=== PATIENT | male | born 1945 ===

== ENCOUNTER 2018-06-20 14:19 | Inpatient (IN) ==
[2018-06-20] MEDS ORDERED: NS 1,000 ML IV PRN ×2 (14:25→17:33)
--- NOTE | 2018-06-20 14:49 | Diag Imaging Result Doc PS360 ---
EXAM: CT HEAD W/O CONTRAST HISTORY: STROKE SX TECHNIQUE: CT head without contrast COMPARISON: None. FINDINGS: No parenchymal hemorrhage. No epidural or subdural hematoma. No subarachnoid hemorrhage. There are prominent chronic microvascular ischemic changes. No mass identified on this noncontrasted exam. Mild ventricular prominence. Mucosal thickening in the left sphenoid sinus. IMPRESSION: 1.No hemorrhage 2.Prominent chronic microvascular ischemic changes This exam was performed using automated exposure control, adjustment of mA or kV according to patient size, and/or use of iterative reconstruction technique. Electronically signed by Anupam Martínez 06/20/2018 2:47 PM
--- NOTE | 2018-06-20 15:07 | Diag Imaging Result Doc PS360 ---
EXAM: CHEST-PORTABLE HISTORY: stroke like symptoms TECHNIQUE: Portable chest single view COMPARISON: None. FINDINGS: The lungs are well expanded. The heart is not enlarged. No consolidation. Mild central vascular distention. There calcified right paratracheal lymph nodes. No effusion identified. There is a thoracic aortic graft. IMPRESSION: Mild central vascular prominence. Electronically signed by Anupam Martínez 06/20/2018 3:05 PM
[2018-06-20 15:20] LABS: BASO# 0.02 X1000 (0.0-0.2); BASO% 0.4 % (0.0-0.8); EOS# 0.05 X1000 (0.0-0.7); HEMATOCRIT 44.6 % (42.0-52.0); HEMOGLOBIN 14.8 g/dL (14.0-18.0); LYMPH# 1.59 X1000 (1.2-3.4); LYMPH% 32.6 % (20.5-51.1); MCH 28.2 PG (27-31); MCHC 33.2 g/dL (33-37); MONO# 0.62 X1000 (0.11-0.59); MONO% 12.7 % (1.7-9.3); MPV 10.9 FL (7.4-10.4); NEUT# 2.59 X1000 (1.4-6.5); NEUT% 53.3 % (42.2-75.2); PLT 135 X1000 (130-400); RBC 5.25 XMIL (4.7-6.1); RDW 13.4 % (11.5-14.5); WBC 4.87 X1000 (4.8-10.8)
[2018-06-20 15:37] LABS: INR 1.03; PROTIME 14.3 Seconds (11.0-16.0)
[2018-06-20 15:38] LABS: PTT 27.6 Seconds (22.3-41.8)
[2018-06-20 15:58] LABS: AGAP 11; ALB/GLOB RATIO 1.3; ALKALINE PHOSPHATASE 62 U/L (32-122); BUN 10 mg/dL (8-22); CHLORIDE 104 mmol/L (98-107); COSMO 281; GLUCOSE 106 mg/dL (70-104); GOT 13 U/L (10-34); GPT 8 U/L (10-44); POTASSIUM 4.1 mmol/L (3.5-5.1); SODIUM 141 mmol/L (136-145); TCO2 26 mmol/L (25-35); TOTAL BILIRUBIN 0.52 mg/dL (0.20-1.00); TOTAL PROTEIN 7.2 g/dL (6.3-8.3)
[2018-06-20 18:07] LABS: FREE T4 1.27 ng/dL (0.93-1.70); TSH 1.58 uIUmL (0.27-4.20)
--- NOTE | 2018-06-20 18:11 | PROVIDER DOCUMENTATION ---
This chart was entered by Karla Dykes Scribe, acting as scribe for Abdulaziz Purcell MD. HPI-Neurological Disorder - General Stated Complaint: STROKE LIKE Time Seen by Provider: 06/20/18 14:23 Source: patient, family, EMS Allergies/Adverse Reactions: Patient Allergies Allergy/AdvReac Type Severity Reaction Status Date / Time tomato [Tomato] Allergy Intermediate ITCH Verified 06/20/18 17:31 Home Medications: Home Medication List Medication Instructions Recorded Confirmed Last Taken Type ATORVAstatin [Lipitor] 20 mg PO DAILY 08/12/13 06/20/18 06/19/18 History Amlodipine [Norvasc] 10 mg PO DAILY 08/12/13 06/20/18 06/20/18 History Aspirin [Aspirin EC] 81 mg PO DAILY 08/12/13 06/20/18 06/20/18 History - History of Present Illness-Neuro Nature of Presenting Problem: 72 y/o male presents to ED with cc of stroke-like symptoms onset approximately 1.5 hours prior to arrival. Family reports they left him alone for 10-15 minutes , and found him in the floor when they returned. Family states he could not get up or walk. EMS reports L sided facial droop and pinpoint pupils, and that they administered Narcan en route to ED. Per family insisted he has residual deficits from his previous L sided CVA, but family says his speech is normally clear and articulate, whereas he has some dysarthria now. They also agree he has mild facial asymmetry (droop) which is new today. Pt is alert and oriented. He has no aphasia. He recalls going into the kitchen to get coffee and then felt "very dizzy" and fell to floor. It appears there has been no LOC. Severity: reports: severe Onset/Duration: reports: 1-3 hours ago Timing: reports: still present Context: reports: impaired speech, facial droop, falling Approximate time patient was last seen normal?: 13:00 Character of Altered Mental Status: reports: N/A Any recent trauma/injury?: reports: none Character of Deficits: reports: impaired speech, decreased ability to stand, decreased ability to walk, falling New weakness or altered sensation location:: reports: left facial Cognitive Baseline: alert, oriented x3 Gait Baseline: walks without assistance (but has residual weakness of L extremities) Associated Symptoms: reports: decreased ability to walk or stand, dizziness, slurred speech, trouble walking Similar Symptoms Previously?: Yes (hx CVA) Recently seen or treated by another doctor?: No Review of Systems - Adult - REVIEW OF SYSTEMS - ADULT Constitutional: denies: chills, fever Eyes: reports: other (pinpoint pupils). denies: decreased vision Ears, Nose, Mouth & Throat: reports: no symptoms reported Cardiovascular: denies: chest pain, palpitations Respiratory: denies: cough, shortness of breath Gastrointestinal: denies: abdominal pain, diarrhea, nausea, vomiting Genitourinary: reports: no symptoms reported Musculoskeletal: denies: back pain, joint pain Integumentary: reports: no symptoms reported Neurological: reports: dizziness/vertigo, slurred speech, other (falling; unable to walk; L sided facial droop). denies: seizure Psychiatric: reports: no symptoms reported Endocrine: reports: no symptoms reported Hematologic/Lymphatic: reports: no symptoms reported Allergic/Immunologic: reports: no symptoms reported All Other Systems: Reviewed and Negative Past History - Adult - PAST MEDICAL HISTORY-ADULT Review of Records: reports: Old Records Reviewed, Nursing Assessment Review, Medications Reviewed Major Childhood Illnesses: reports: denies history Cardiovascular: reports: hyperlipidemia Respiratory: reports: denies history Gastrointestinal: reports: GERD Obstetrical/Gynecological: reports: denies history Genitourinary: reports: denies history Musculoskeletal: reports: denies history Neurological: reports: CVA Psychiatric: reports: denies history Endocrine/Immune: reports: denies history Other Conditions: reports: denies history - PRIOR SURGERIES/PROCEDURES Surgical/Procedure History: reports: none - IMMUNIZATION STATUS Childhood Immunizations: See Nurse Assessment Flu Vaccine: See Nurse Assessment - FAMILY HISTORY Family History: reviewed, not pertinent - SOCIAL HISTORY Smoking: less than 1 pack/day Provider spent 3-5 mins advising pt. on dangers of tobacco.: Discussed manners to quit use, and f/u contacts for add'l counseling. Substance Use: none/never Alcohol Use Frequency: never Living Situation: family Physical Exam- Neurological - Physical Exam-Neuro Initial Vital Signs Reviewed: Yes General Appearance: appears well, alert, no apparent distress Eye Exam: bilateral eye: normal inspection, PERRL, EOMI HENMT: normocephalic/atraumatic, moist mucous membranes, normal ENT inspection Head Injury: no evidence of injury Neck: non-tender, full range of motion Respiratory: chest non-tender, lungs clear, normal breath sounds Cardiovascular: normal peripheral pulses, regular rate, rhythm Abdominal Exam: normal bowel sounds, non tender, soft Extremity: normal range of motion, non-tender, normal inspection, no pedal edema , no calf tenderness. 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 Exam: normal hearing, PERRL, abnormal speech (word salad; stammering dysarthria), facial asymmetry (L sided when at rest, but symmetric smile), facial droop (L sided when at rest, but symmetric smile) Coordination/Gait: normal finger to nose, normal gait Motor/Sensory: no motor deficit, no sensory deficit, no pronator drift Neurologic: abnormal gait, facial droop (L sided when at rest, but symmetric smile), motor weakness (residual L extremities) Integumentary: normal color, warm/dry Psych/Mental Status: normal mood/affect, normal thought content, normal thought process Progress - PLAN OF CARE/RESULTS Progress/Plan/Lab Results: Vital Signs - 8 hr 06/20/18 14:43 06/20/18 16:43 Temperature 98.3 F Pulse Rate 81 Respiratory Rate 14 Blood Pressure 129/92 O2 Sat by Pulse Oximetry 92 L Laboratory Results - last 24 hr 06/20/18 06/20/18 06/20/18 14:15 14:15 14:15 WBC 4.87 RBC 5.25 Hgb 14.8 Hct 44.6 MCV 85.0 MCH 28.2 MCHC 33.2 RDW Std Deviation 13.4 Plt Count 135 MPV 10.9 H Immature Gran % (Auto) 0.0 Neut % (Auto) 53.3 Lymph % (Auto) 32.6 Isabella % (Auto) 12.7 H Eos % (Auto) 1.0 Baso % (Auto) 0.4 Immature Gran # (Auto) 0.00 Neut # (Auto) 2.59 Lymph # (Auto) 1.59 Isabella # (Auto) 0.62 H Eos # (Auto) 0.05 Baso # (Auto) 0.02 PT 14.3 INR 1.03 PTT (Actin FS) 27.6 Sodium 141 Potassium 4.1 Chloride 104 Carbon Dioxide 26 Anion Gap 11 BUN 10 Creatinine 1.0 BUN/Creatinine Ratio 10 Glucose 106 H Calculated Osmolality 281 Calcium 9.0 Total Bilirubin 0.52 AST 13 ALT 8 L Alkaline Phosphatase 62 Troponin T Total Protein 7.2 Albumin 4.0 Globulin 3.2 Albumin/Globulin Ratio 1.3 06/20/18 14:15 WBC RBC Hgb Hct MCV MCH MCHC RDW Std Deviation Plt Count MPV Immature Gran % (Auto) Neut % (Auto) Lymph % (Auto) Isabella % (Auto) Eos % (Auto) Baso % (Auto) Immature Gran # (Auto) Neut # (Auto) Lymph # (Auto) Isabella # (Auto) Eos # (Auto) Baso # (Auto) PT INR PTT (Actin FS) Sodium Potassium Chloride Carbon Dioxide Anion Gap BUN Creatinine BUN/Creatinine Ratio Glucose Calculated Osmolality Calcium Total Bilirubin AST ALT Alkaline Phosphatase Troponin T 0.034 Total Protein Albumin Globulin Albumin/Globulin Ratio Orders Category Date Time Status Admit - [facility] Routine AdmDCTranf 06/20/18 17:37 Active Activity - Strict Bedrest Q1D Care 06/20/18 17:37 Active Apply Mechanical Device [QM] ORDERED Care 06/20/18 17:37 Active Aspiration Precautions DIRECTED Care 06/20/18 17:37 Active Cardiac Monitoring DIRECTED Care 06/20/18 14:25 Active DVT/PE Risk Assess/Protocol [QM] ORDERED Care 06/20/18 17:37 Active Elevate Head of Bed DIRECTED Care 06/20/18 17:37 Active Finger Stick Blood Sugar (ED) DIRECTED Care 06/20/18 14:25 Active IV Insertion ORDERED Care 06/20/18 17:37 Active Intake and Output-Strict ORDERED Care 06/20/18 17:37 Active Misc. NRSG Communication Order DIRECTED Care 06/20/18 14:25 Active Neurological Check Q4H Care 06/20/18 17:37 Active Saline Loc NOW Care 06/20/18 14:25 Active Vital Signs Order Q 4-HR ASSESS Care 06/20/18 17:37 Active Z-Document. for Tele Applied ORDERED Care 06/20/18 17:37 Active Social Service Consult Routine Cons 06/20/18 17:37 Active Mechanical Soft Diet Diet 06/20/18 17:37 Active CHEST-PORTABLE [RAD] Stat Exams 06/20/18 14:[address] HEAD W/O CONTRAST [CT] Stat Exams 06/20/18 14:21 Completed A1C HGB W EST AVG GLUCOSE [CHEM] Routine Lab 06/21/18 06:00 Ordered BLOOD CULTURE [BLDCUL] Stat Lab 06/20/18 14:15 Results CBC WITH ELECTRONIC DIFF [HEME] Stat Lab 06/20/18 14:15 Completed CBC WITH NO DIFF [HEME] DAILY Lab 06/21/18 06:00 Ordered CBC WITH NO DIFF [HEME] DAILY Lab 06/22/18 06:00 Ordered CBC WITH NO DIFF [HEME] DAILY Lab 06/23/18 06:00 Ordered CBC WITH NO DIFF [HEME] DAILY Lab 06/24/18 06:00 Ordered CBC WITH NO DIFF [HEME] DAILY Lab 06/25/18 06:00 Ordered CK PROFILE [SP CHEM] Q6H Lab 06/20/18 17:45 Ordered CK PROFILE [SP CHEM] Q6H Lab 06/20/18 23:45 Ordered CK PROFILE [SP CHEM] Q6H Lab 06/21/18 05:45 Ordered COMPREHENSIVE METABOLIC PANEL [CHEM] Stat Lab 06/20/18 14:15 Completed FREE T4 Timed Lab 06/20/18 14:15 Received LIPID PROFILE W/DIR LDL [LIPIDS] Routine Lab 06/21/18 06:00 Ordered MAGNESIUM [CHEM] DAILY Lab 06/21/18 06:00 Ordered PROTIME WITH INR [COAG] Stat Lab 06/20/18 14:15 Completed PTT [COAG] Stat Lab 06/20/18 14:15 Completed TROPONIN T Q6H Lab 06/20/18 17:45 Ordered TROPONIN T Q6H Lab 06/20/18 23:45 Ordered TROPONIN T Q6H Lab 06/21/18 05:45 Ordered TROPONIN T Stat Lab 06/20/18 14:15 Completed TSH Timed Lab 06/20/18 14:15 Received URINALYSIS W/POSS RFLX CULT [URINALYSIS] Stat Lab 06/20/18 14:25 Uncollected 0.9% Sodium Chloride Inj [Ns] 1,000 ml Med 06/20/18 14:25 Discontinued IV 200 mls/hr 0.9% Sodium Chloride Inj [Ns] 1,000 ml Med 06/20/18 17:33 Active IV 75 mls/hr ATORVAstatin [Lipitor] Med 06/21/18 09:00 Active 20 mg PO DAILY Aspirin Med 06/21/18 09:00 Active 325 mg PO DAILY Oxygen Device Routine Oth 06/20/18 17:37 Active Telemetry [OM.EQ] Routine Oth 06/20/18 17:37 Active EKG [EKG] Stat Ther 06/20/18 14:25 Ordered Echo Spec/Color Dop W/O Contra Routine Ther 06/21/18 06:00 Ordered Physical Therapy Eval/Treatment [OM.PT] Routine Ther 06/20/18 17:37 Active Speech Evaluation [OM.SPT] Routine Ther 06/20/18 17:37 Active Transfer/Admit Order [TRANSFER] Routine Transfer 06/20/18 17:33 Ordered Result Diagrams: 06/20/18 14:15 06/20/18 14:15 - REASSESSMENT Reassessment #1 Time Reassessed: 15:18 Status: improving Reassessment Comment: Improving dysarthria - EKG 1 Time of EKG reading by physician:: 17:24 EKG Read and Signed by:: Abdulaziz Purcell EKG Interpretation (*Must complete 3 of following elements*): Abnormal Rate: 86 Rhythm: NSR [place]: left QRS: RBB, other (inferior infarct; anterolateral infarct) NE Interval: normal ST Wave: normal - XRAY 1 XRAY Study: Chest Impression: Abnormal (COMPARISON: None. FINDINGS: The lungs are well expanded. The heart is not enlarged. No consolidation. Mild central vascular distention. There calcified right paratracheal lymph nodes. No effusion identified. There is a thoracic aortic graft. IMPRESSION: Mild central vascular prominence. Electronically signed by Anupam Martínez 06/20/2018 3: 05 PM) - CT/MRI 1 CT Study: Head Impression: Abnormal ( FINDINGS: No parenchymal hemorrhage. No epidural or subdural hematoma. No subarachnoid hemorrhage. There are prominent chronic microvascular ischemic changes. No mass identified on this noncontrasted exam. Mild ventricular prominence. Mucosal thickening in the left sphenoid sinus. IMPRESSION: 1.No hemorrhage 2.Prominent chronic microvascular ischemic changes This exam was performed using automated exposure control, adjustment of mA or kV according to patient size, and/or use of iterative reconstruction technique. Electronically signed by Anupam Martínez 06/20/2018 2:47 PM) - CONSULTS/PCP/HOSPITALIST Notification #1 *Consult/PCP/Hospitalist*: Transfer Center HH Time Discussed: 15:00 Reason/Comments: Stroke-like symptoms Consult Disposition: Admit (Neurologist recommends admitting at [facility] for the stroke-symptoms, but states they are not severe enough to transfer to [place] and he is not a candidate for tPA.) #2 Consult: Hermes MINOR for Dr. Ocampo Time Discussed: 16:18 Reason/Comments: Stroke-like symptoms Consult Disposition: Admit Departure - Departure Date of Disposition Decision: 06/20/18 Time of Disposition Decision: 16:20 DIAGNOSIS: Tobacco abuse disorder Stroke Qualifiers: CVA mechanism: unspecified Qualified Code(s): I63.9 - Cerebral infarction, unspecified Disposition: ADMITTED INPATIENT 09 Certified Medical Emergency: Emergent Condition: Good Additional Freetext Instructions: ED Follow Up Instructions: You have been treated by a care provider in the Emergency Department. These instructions are being provided to you so you can have an understanding of how to care for yourself upon discharge. Upon discharge from the Emergency Department, you are responsible for making arrangements for follow-up care by a physician of your choice. Take all prescribed medications as directed. Return to the Emergency Department immediately for any new or worsening symptoms. You may call the Physician Referral phone number at [phone] to obtain a list of Physicians who are taking new patients. Referrals and Follow-Ups: Casi Thomas CRNP [Primary Care Provider] - Discharge Education: Steps to Quit Smoking, [id number] - Critical Care Note This patient required my direct & personal management of CC.: No Attestation - Physician/ BULL Attestation Patient care was provided by Advanced Practice Provider:: No The physician spent face to face time with patient:: Yes Advanced Practice Provider documentation review:: Supervising physician onsite and consulted in the evaluation and care of this patient. The physician did have a face to face encounter with the patient. - NIH Stroke Scale NIH Type: Initial Evaluation Level of Consciousness: 0-Alert LOC Questions (ask month and age): 0-Answers Both Correctly LOC Commands (ask to open & close eyes;make a fist, let go): 0-Obeys Both Correctly Best Gaze (horizontal eye movement): 0-Normal Visual (use finger movement, counting or visual threat): 0-No Visual Loss Facial Palsy (show teeth or raise eyebrows & close eyes tght: 1-Minor Paralysis Motor Function-left arm: 0-Normal Motor Function-right arm: 0-Normal Motor Function-left le-Normal Motor Function-right le-Normal Limb Ataxia([id number], or heel to garcia): 0-No Ataxia Sensory(pin prick to face,arms,trunk,legs-compare side/side): 0-No Ataxia Best Language(name item/read sentence.Ex-Down to Earth): 0-No Aphasia Dysarthria(Pt read words or say words Ex.Mama,Tip-Top,Thanks: 1-Mild-Mod Slurring Words Extinction and Inattention: 0-Normal NIH Total Score: 2 Modified [place] Score Criteria: 1-no significant disability despite symptoms Stroke tPA Guidelines - Inclusion Criteria for IV tPA 18 years old or older: Yes Ischemic stroke with measurable deficit: No Onset <3 hours ago *OR* 3-4.5 hours ago: Yes - Exclusion Criteria for IV tPA Evidence of intracranial hemorrhage on CT: No Presentation suggest SAH: No CT reveals defined area of hypodensity: No Evidence of AVM, neoplasm, aneurysm: No Seizure at stroke onset: No Active internal bleeding or acute trauma: No Platelet Count Less Than 100,000: No Heparin Within Last 48 HRS (PTT >Lab normal limits): No INR > 1.7 (warfarin use): No Use IIB/IIIA inhibitors within 24 hours: No Serious Head Trauma Within Last 3 Months: No Arterial Puncture Within Last 7 Days: No Lumbar Puncture Within Last 7 Days: No Repeated systolic Blood Pressure >185 or Diastolic >110: No - Additional Exclusion Criteria for IV tPA Currently on Coumadin: No Patient older than 80: No Prior stroke and diabetes: Yes Baseline NIHSS score > 25: No - Relative Contraindications to IV tPA CT reveals extensive area of infarct (>1/3 MCA territory): No Minor or rapidly improving stroke symptoms: Yes Major Surgery or Serious Trauma In Previous 14 Days: No AMI within 3 months: No Gastrointestinal or Urinary Tract hemorrhage in Past 21 Days: No Post - AMI pericarditis: No Blood Glucose Less Than 50 mg/dl or Greater Than 400 mg/dl: No - Consultation Reason not a candidate:: Minor stroke symptoms/ NIH score of 2. This chart was documented by the indicated scribe, (Karla Dykes Scribe) and accurately reflects the services I performed and decisions made by me, Abdulaziz Purcell MD, as attested by the provider's signature.
--- NOTE | 2018-06-20 18:16 | HISTORY AND PHYSICAL ---
DATE OF ADMISSION: 06/20/2018. CHIEF COMPLAINT: Stroke like symptoms. HPI: Mr. Cohen is a 61-vjux-saa--[place] male with a history of previous CVA that has left him with left-sided hemiparesis. He also has a history of both thoracic and abdominal aortic aneurysm status post repair per his report. His states that she walked in the kitchen today and found Mr. Cohen on the ground. He was minimally responsive and slurring his speech. He was very difficult to arouse, and get up, so 911 was called. The patient, himself, is somewhat encephalopathic. He does state that he recalls being in the kitchen making breakfast and the next thing he knew, he was in the ambulance on the way to the ER. He denies any chest pain. No shortness of breath. Denies abdominal pain, nausea, vomiting, lower extremity edema. He does have chronic left-sided weakness which he states is possibly a little worse than it normally is. His speech is somewhat garbled, and he is unable to answer most orientation questions correctly. In the ER, head CT was done. It did not show anything acute. Only chronic changes noted. Chest x-ray showed mild central vascular distention and a thoracic aortic graft, but nothing acute. EKG shows sinus rhythm with a right bundle branch block and left axis deviation. Laboratory data is unremarkable. We are going to admit him for further treatment and evaluation. PAST MEDICAL HISTORY: 1. Previous CVA with left-sided hemiparesis. 2. History of thoracic and abdominal AAA aneurysms. 3. Hypertension. 4. Hyperlipidemia. PAST SURGICAL HISTORY: Aortic aneurysm repair x2. SOCIAL HISTORY: No tobacco, alcohol or drug use. His is at the bedside. They have five children. FAMILY HISTORY: Noncontributory. REVIEW OF SYSTEMS: 14 point review of systems was obtained and found to be negative with the exception of the HPI. ALLERGIES: TOMATOES. HOME MEDICATIONS: 1. Norvasc 10 mg daily. 2. Aspirin 81 mg daily. 3. Lipitor 20 mg daily. PHYSICAL EXAMINATION: VITAL SIGNS: Blood pressure 129/92, heart rate 81, respiratory rate 14 and O2 saturation 92% on room air. Temperature is 98.3. GENERAL: This is an overweight male lying on the hospital bed in no acute distress. NEUROLOGICAL: The patient is awake and alert. However, he is disoriented to the year, to the place. He is able to follow commands with significant weakness in the left upper and lower extremities, 3/5 on the left and 5/5 on the right. Random alternating movements are significantly altered on the left hand. He reports no change in sensation in the left or right upper or lower extremities with fine touch. He does have a bit of a left-sided facial droop. HEENT: Normocephalic, atraumatic. Pupils are equal, round and reactive to light. Oral mucosa is moist. Trachea is midline. CHEST: Clear to auscultation. CV: Regular rate and rhythm. S1, S2 noted. GI: Soft, nondistended and nontender. Bowel sounds are positive. EXTREMITIES: No edema. Pulses are 2+ bilaterally. DIAGNOSTIC DATA: Head CT shows chronic changes, nothing acute. Chest x-ray shows mild pulmonary vascular distention, calcified paratracheal nodes on the right. Thoracic aortic graft. Laboratory data is reviewed and unremarkable. ASSESSMENT AND PLAN: 1. Stroke-like symptoms: Concern is for a right-sided stroke. CT does not show anything acute. However, we will need an MRI which will not be available til Friday. We will make sure that he is on aspirin and allow for somewhat permissive hypertension. He does have two aortic aneurysms that have been repaired, so we will need to be cautious with allowing for anything over 180 systolic. We will continue neurological evaluation and check an echo, carotids and an MRI on Friday. We will make sure that he continues his statin and aspirin. The threshold is low to re CT his head if symptoms progress or change. 2. History of triple A x2: No chest pain or abdominal pain at this time. We will continue to monitor and make sure his blood pressure does not go too high. 3. Hyperlipidemia. Continue statin. 4. With regard to [facility] care, we have consulted speech therapy, physical therapy, and social work. We will see how strong he is by the time he is to be discharged at which time a decision will need to be made about rehab versus home or home health. Further recommendations to follow. Patient seen and examined by me face to face, all the laboratory, images and vitals signs were reviewed, patient presented with stroke like symptoms vs syncope, he has a medical history of stroke, hypertension, dyslipidemia, he denies diabetes but he use to be in metformin, he has left sided weakness but apparently this is chronic, he is not fully oriented but he is responding to simple questions and follows commands, we will get an MRI, we will monitor the blood pressure, I will ask for an HbA1C to rule out Diabetes, physical therapy, I agree with the MRI TECHNOLOGIST's assessment and plan, Kenrick Quintana MD. Dictated by MILY Hernandez for Kenrick Burciaga MD cc: MILY Hernandez MD MTDD
[2018-06-21 05:48] LABS: URINE SOURCE CLEAN CATCH
[2018-06-21 05:51] LABS: BILIRUBIN URINE NEGATIVE (NEGATIVE); BLOOD URINE SMALL (NEGATIVE); COLOR YELLOW; GLUCOSE URINE NEGATIVE (NEGATIVE); KETONE URINE NEGATIVE (NEGATIVE); LEUKOCYTES URINE NEGATIVE (NEGATIVE); NITRITE URINE NEGATIVE (NEGATIVE); PROTEIN URINE TRACE mg/dL (NEGATIVE); SP GRAVITY URINE 1.005; TURBIDITY URINE CLEAR (CLEAR); UROBILINOGEN URINE 2 mg/dL (NORMAL)
[2018-06-21 05:52] LABS: UR EPITHELIAL CELLS <10 /HPF (<10); URINE BACTERIA NEGATIVE /HPF; URINE RBC <10 /HPF (<10); URINE WBC <10 /HPF (<10)
[2018-06-21 07:30] LABS: HEMATOCRIT 42.2 % (42.0-52.0); HEMOGLOBIN 14.5 g/dL (14.0-18.0); MCH 29.4 PG (27-31); MCHC 34.4 g/dL (33-37); MCV 85.4 FL (81-99); MPV 11.2 FL (7.4-10.4); RBC 4.94 XMIL (4.7-6.1); RDW 13.6 % (11.5-14.5); WBC 4.81 X1000 (4.8-10.8)
[2018-06-21] MEDS: ASPIRIN PO SCH (08:28)
[2018-06-21] MEDS ORDERED: LIPITOR PO SCH (09:00)
--- NOTE | 2018-06-21 14:13 | PROGRESS NOTE ---
DATE: 06/21/2018 SUBJECTIVE: This patient is resting comfortably in bed. He is not complaining of chest pain or shortness of breath. No dizziness. No blurry vision. No headache. As per the patient, no new symptoms today. OBJECTIVE: Vital Signs: Temperature 99.1 degrees, pulse 78, respiratory rate 16, blood pressure 132/86, and oxygen saturation 99 on room air. HEENT: Head normocephalic. No trauma. PERRLA. Neck: Supple. No JVD. No masses. Central trachea. Chest: Clear to auscultation. No wheezing. No rales. Abdomen: Soft, nontender, and nondistended. No hepatosplenomegaly. Extremities: No edema. No clubbing. No cyanosis. Neurological: The patient is alert and oriented x3 today. He has some left-sided weakness around 3/5. He is following commands. LABORATORY: WBC 4.8, hemoglobin 14.5, hematocrit 42.2, and platelets 128,000. Hemoglobin A1c 7. Triglycerides 111. Cholesterol 204. LDL 170. HDL 41. ASSESSMENT AND PLAN: 1. Stroke like symptoms versus syncopal episode. He is not having any abnormality at this moment. Pending echocardiogram, MRI, and carotid ultrasound. We will continue with his blood pressure medication and also statin's. 2. History of aortic aneurysm repaired x2, but this patient has no complaint of chest pain or shortness of breath. 3. Hyperlipidemia. I would put this patient back on his home medication. As per the patient, he is not taking this medication at home and that is why the cholesterol and triglycerides are elevated. 4. Hypertension. Continue with the same management stable. 5. Type 2 diabetes. As per the patient, he was placed on metformin before but he had stopped it because he was having loose stools/diarrhea. Yesterday, he told me that he does not have diabetes, but I ordered a hemoglobin A1c and it was 7. He does have diabetes, and I explained that to the patient. For now, we will start with diet and more physical activity to try to control it. 6. History of CVA with left-sided weakness. Aware. cc: Kenrick Burciaga MD
[2018-06-21] MEDS ORDERED: VANCOMYCIN IV PER PHARMACY MISC SCH (15:45)
[2018-06-21] MEDS ORDERED: VANCOMYCIN 2,000 MG in NS 500 ML IV ONE (17:00)
--- NOTE | 2018-06-22 07:28 | Carotid Study ---
DATE: 06/21/2018 PROCEDURE: Carotid duplex imaging. REFERRING PHYSICIAN: Dr. Ocampo INTERPRETING PHYSICIAN: Shantanu Marquez MD TECH: [place] INDICATIONS: Cerebrovascular accident. EQUIPMENT: [employer] E9 ultrasound system with a 9LD transducer. OBSERVED DATA RIGHT LEFT Brachial Blood Pressure Carotid Pulse Bruits: Carotid/Sub DIAGRAM OF ULTRASOUND IMAGING R L RIGHT INT EXT INT EXT LEFT Ankur (cm/s) Ankur (cm/s) Subclavian 40/0 Subclavian 28/5 CCA Proximal 38/9 CCA Proximal 63/12 CCA Distal 38/9 CCA Distal 47/10 Bulb 31/9 Bulb 34/9 ICA Proximal 29/13 ICA Proximal 74/17 ICA Mid 30/12 ICA Mid 46/8 ICA Distal 28/8 ICA Distal 40/14 ECA 253/4 ECA 117/7 Vertebral 17/8 Vertebral 43/10 ICA/CCA Ratio 0.79 ICA/CCA Ratio 1.38 % Stenosis 0%-39% % Stenosis 0%-39% FINDINGS: There is some atherosclerosis noted to bilateral carotid arteries. It should be noted that the patient's velocities are low throughout the entire carotid system which may limit interpretative ability of this study. Both vertebral arteries were antegrade flow. INTERPRETATION: Slow velocities throughout the entirety of bilateral carotid arteries which may limit the interpretative ability of the study but by strict velocity criteria, no hemodynamically significant flow-limiting stenosis. If clinical suspicion holds, the patient may benefit from CT angiography. cc: MD Kenrick Hendrickson MD
[2018-06-22 07:39] LABS: HEMOGLOBIN A1C 6.9 % (4.8-6.0)
[2018-06-22 07:44] LABS: AGAP 11; BUN 9 mg/dL (8-22); CALCIUM 8.8 mg/dL (8.8-10.2); CHLORIDE 106 mmol/L (98-107); COSMO 284; CREATININE 1.1 mg/dL (0.7-1.2); GLUCOSE 129 mg/dL (70-104); MAGNESIUM 1.8 mg/dL (1.5-2.7); POTASSIUM 3.8 mmol/L (3.5-5.1); SODIUM 142 mmol/L (136-145); TCO2 25 mmol/L (25-35)
--- NOTE | 2018-06-22 08:19 | EKG Report ---
Test Performed on : 06/20/2018 5:24:19 PM Test Reason : Stroke like symptoms Blood Pressure : / mmHG Vent. Rate : 086 BPM Atrial Rate : 086 BPM P-R Int : 164 ms QRS Dur : 126 ms QT Int : 400 ms P-R-T Axes : 061 -76 013 degrees QTc Int : 478 ms Poor data quality, interpretation may be adversely affected Normal sinus rhythm. Left axis deviation Right bundle branch block Inferior infarct , age undetermined Anterolateral infarct , age undetermined Abnormal ECG No previous ECGs available Unconfirmed Result
--- NOTE | 2018-06-22 08:21 | ECHO REPORT ---
ORDER DATE: 06/21/2018 INTERPRETING PHYSICIAN: Jcainto Mc MD. INDICATION: A 72-year-old male with stroke-like symptoms, previous myocardial infarction. M-MODE MEASUREMENTS: Left ventricle end diastole: 5.1 cm. Left ventricle end systole: 4.1 cm. Posterior wall: 1.1 cm. Interventricular septum: 1.1 cm. Left atrium: 4.3 cm. Aortic root: 3.5 cm. SUMMARY OF 2-DIMENSIONAL IMAGIN. The left ventricular chamber appears to be enlarged. The left ventricular systolic function is significantly impaired. Global ejection fraction is estimated at 30% to 35%. 2. There is evidence of apical thrombus. It measures about 2.2 x 1.3 cm in maximum dimensions, is attached to the apex of the left ventricle. The entire anteroapical and distal inferior wall and distal septal aspect of the left ventricle is akinetic, suggesting extensive infarction from LAD territory involvement. 3. The mitral valve shows trace of regurgitation. Pulsed wave Doppler of mitral inflow shows "normal" E/A ratio. The tissue Doppler of septal and lateral mitral annulus averages 6 cm. Diastolic function may be normal. 4. The aortic valve shows some thickening of the cusps. No stenosis, no regurgitation is noted. 5. The cardiac output in this case is estimated at 1.9 L/m2 of body surface area indicating low cardiac output state. 6. The tricuspid valve is unremarkable. Pulmonary pressure cannot be properly estimated in this case because of minimal jet of tricuspid regurgitation. However, the right-sided chambers are not dilated. 7. The left atrium is probably within normal range. 8. The pulmonic valve is unremarkable. SUMMARY: In summary, his study shows: 1. Extensive wall motion abnormality involving the anteroapical, distal inferior, distal septal segment of the left ventricle suggesting an extensive anteroapical IA. There is apical thrombus, 2.2 x 1.3 cm. It is attached to the apex. Definity was added to optimize visualization of the thrombus. 2. There is no significant diastolic dysfunction. Pulmonary pressure cannot be estimated. Clinical correlation recommended. cc: MD Didier Meadows CRNP
[2018-06-22] MEDS ORDERED: NORVASC PO SCH (09:00)
[2018-06-22] MEDS ORDERED: LIPITOR PO SCH (09:00)
[2018-06-22] MEDS: LIPITOR PO SCH (09:25)
[2018-06-22] MEDS: ASPIRIN PO SCH (09:25)
--- NOTE | 2018-06-22 10:01 | Diag Imaging Result Doc PS360 ---
EXAM: MRA BRAIN W/O CONTRAST 06/20/2018 HISTORY: stroke like symptoms TECHNIQUE: 3-D [id number] COMMENT: There is some questionable stenosis in the A1 segments of both anterior cerebral arteries particularly the origin of the right anterior cerebral. There is slight narrowing of the proximal basilar artery. There is fairly poor visualization of the distal branches of the cerebral arteries generally. Both posterior communicating arteries are widely patent. IMPRESSION: Atherosclerotic disease with stenoses of both A1 segments particularly the origin of the right A1 segment. Electronically signed by Fausto Bose 06/22/2018 9:59 AM
--- NOTE | 2018-06-22 10:04 | Diag Imaging Result Doc PS360 ---
EXAM: MRI BRAIN W/O CONTRAST 06/20/2018 HISTORY: stroke like symptoms TECHNIQUE: T1 sagittal and axial, axial T2, FLAIR, DWI, and coronal gradient echo. COMMENT: There is severe diffuse white matter hyperintensity throughout the subcortical and periventricular white matter. There is increased T2-weighted signal intensity in the right thalamus and decreased T1-weighted signal intensity in these areas. There is no evidence of bleed or abnormal extra-axial fluid collection. There is restricted diffusion in the right thalamus. IMPRESSION: Acute or subacute lacunar infarction in the right thalamus. Extensive chronic ischemic microvascular white matter disease. The findings were discussed with Gayatri at 06/22/2018 at 1001. Electronically signed by Fausto Bose 06/22/2018 10:01 AM
--- NOTE | 2018-06-22 11:07 | Diag Imaging Result Doc PS360 ---
EXAM: MRA NECK W/CONT 06/20/2018 HISTORY: stroke like symptoms TECHNIQUE: Contrast-enhanced MRA with 3-D MIPS COMMENT: The right vertebral artery distally is smaller than the left. Both common carotid arteries appear to be widely patent. The cervical internal carotid arteries are unremarkable in appearance. IMPRESSION: No evidence of significant carotid disease. Electronically signed by Fausto Bose 06/22/2018 11:04 AM
[2018-06-22] MEDS ORDERED: LOVENOX SUBQ SCH (13:00)
[2018-06-22] MEDS ORDERED: ELIQUIS PO SCH (13:15)
--- NOTE | 2018-06-22 13:44 | CARDIOLOGY CONSULTATION ---
DATE: 06/22/2018 REASON FOR CONSULTATION: Cardiology was consulted for LA thrombus, abnormal EKG. The patient is admitted with a stroke. HISTORY OF PRESENT ILLNESS: A 72-year-old gentleman with history of previous CVA which has left-sided hemiparesis. He also has peripheral vascular disease, status post thoracoabdominal aorta aneurysm repair. The patient was in the kitchen when he was noted to be minimally responsive. Leaned on his cabinets and slid to the ground. He was difficult to arouse. 911 was called. The patient was brought to the emergency room and was admitted. He had difficulty in speech as well. From a cardiac standpoint, he does not complain of any chest pain now or in the last couple of years. There are no palpitations. There is no dizziness or syncope. Next he underwent a CT scan of his head which showed no hemorrhage. Microvascular changes. He had a brain MRI, which revealed acute or subacute lacunar infarct in the right thalamus, extensive chronic ischemic microvascular white matter changes. His MRA of the neck revealed no significant carotid disease. Brain MRA revealed atherosclerotic stenosis both anterior cerebral arteries, particularly in the right cerebral. REVIEW OF SYSTEMS: A 14 point review of system was done. GI System: There is no history of nausea, vomiting, or diarrhea. There is no history of hematemesis or melena. Central nervous system: As above. In addition, the patient slurred speech has improved significantly. He has had left-sided previous hemiparesis. System: There is no dysuria or hematuria. PAST MEDICAL HISTORY: 1. Previous CVA with left hemiparesis 2012. 2. History of hyperlipidemia. 3. Hypertension. PAST SURGICAL HISTORY: 1. Status post endovascular repair of descending thoracic aneurysm on 2014. 2. Status post open repair of abdominal aortic aneurysm with aortobifemoral and left iliac bypass graft August 2014. 3. . HOME MEDICATIONS: Norvasc 10, aspirin 81, Lipitor 20. PHYSICAL EXAMINATION: Vital Signs: Blood pressure was 129/90. First and second heart sounds were heard. There was no S3 gallop. Respiratory System: Normal air entry. There were no crepitations or rhonchi. Abdomen: Soft. Nontender. Central nervous System : Patient awake, alert, oriented. He has some left-sided weakness. Detailed central nervous system examination not performed. HEENT: Atraumatic, normocephalic. Pupils were equal and reacting to light. DIAGNOSTIC DATA: 1. Electrocardiogram revealed normal sinus rhythm, right bundle branch block and anterior old myocardial infarction and old inferior GA 2. His cardiac enzymes were negative. 3. Echocardiogram revealed ejection fraction of 30-35%. Takotsubo picture very likely with an apical thrombus 2.2 to 1.3 cm noted in the left ventricular apex. Please see detailed echocardiogram report. ASSESSMENT AND PLAN: Mr. David Cohen is a 72-year-old gentleman with history of stroke in the past, carotid disease, minimal, hypertension, thoracic and aorta aneurysm repair by endovascular on 03/08/2015, abdominal aortic aneurysm repair, status post open abdominal aortic aneurysm repair, with aortofemoral bypass and iliac bypass grafting, who comes with complaints of having had slurred speech, altered mental status and he collapsed at home. From a cardiac standpoint: He has got an apical thrombus, with left ventricular dysfunction. 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 He does not have any cardiac symptoms. Cardiac enzymes were negative. Given this, we will discontinue his amlodipine decrease his aspirin to 81 mg a day. I will put him on Eliquis 5 mg now and to be taken twice daily. In addition, we will start him on beta-blockers as well as TYLER inhibitors. His laboratory examination revealed a sodium 142, potassium 3.8, BUN 9, creatinine 1.1. Hematology was unremarkable with hemoglobin 14.8, hematocrit 44.6, platelet count of 135,000. I have discontinued his Lovenox. His echocardiogram in 2017 revealed preserved left ventricular systolic function. His electrocardiogram when I last saw him in the office in 2017 revealed old inferior myocardial infarction only. However, electrocardiogram done today revealed a normal sinus rhythm, right bundle branch block, old inferior myocardial infarction as well as anterior myocardial infarction indeterminate age. Again, this could be interim changes which he may have had over the last couple of years and/or associated with the takotsubo pattern where 30% people could have myocardial infarction changes, especially with Q-waves. However give the fact that he has significant vascular disease will setup for Thallium viability study in am. Thank you for the consult. We will follow hospital course. cc: MD KIMBERLYN Marion
--- NOTE | 2018-06-22 16:54 | PROGRESS NOTE ---
DATE: 06/22/2018 SUBJECTIVE: The patient is resting comfortably in bed. He has no complaint of chest pain or shortness of breath. We have an MRI that showed an acute or subacute lacunar infarct in the right thalamus, extensive chronic ischemic microvascular white matter disease. Also, we have an echocardiogram that was done today that showed extensive wall motion abnormality involving the anteroapical, distal inferior and distal septal segment of the left ventricle suggesting an extensive anteroapical PA. There is an apical thrombus measuring 2.2 x 1.3 cm. It is attached to the apes. There is no significant diastolic dysfunction, and pulmonary pressure cannot be estimated. Cardiology Department evaluated this patient. They placed this patient on anticoagulation. I will continue with the rest of the medications including aspirin, Lipitor. We will continue taking care of the blood sugar since this patient has diabetes as well. We have a positive blood culture that showed gram-positive cocci. I have placed this patient on vancomycin in the meantime pending final sensitivity. OBJECTIVE: Vital Signs: Temperature 97.7 degrees, pulse 84, respiratory rate 20, blood pressure 141/91, oxygen saturation 97% on room air. HEENT: Head normocephalic. No trauma. PERRLA. Neck: Supple. No JVD. No masses. Central trachea. Chest: Clear to auscultation. No wheezing. No rales. Cardiovascular: RRR. Abdomen: Soft, nontender, nondistended. No hepatosplenomegaly. Extremities: No edema, no clubbing, no cyanosis. Neurological: The patient is alert. He is oriented x3. He has left-sided weakness around 3/5 to 4/5. He is following commands. LABORATORY DATA: Sodium 142, potassium 3.8, chloride 106, bicarbonate 25, BUN 9, creatinine 1.1, glucose 129. Hemoglobin A1c 6.9, calcium 8.8, magnesium 1.8. ASSESSMENT AND PLAN: 1. Acute versus subacute lacunar infarct in the right thalamus. This patient has an extensive chronic ischemic microvascular white matter disease. He has a previous stroke with left-sided weakness. I have placed this patient on aspirin and Lipitor. I do not think he was taking this treatment at home. We will continue to monitor. 2. Extensive wall motion abnormality involving the anteroapical, distal inferior, and distal septal segment of the left ventricle suggesting an extensive anteroapical myocardial infarction. Cardiology Department has been consulted. They have placed this patient on medication including beta-blockers and angiotensin-converting enzyme inhibitors. We will continue to monitor this patient closely. 3. Intracardiac apical thrombus measuring 2.2 x 1.3 cm. It is attached to the apex. This patient has been placed on anticoagulation by the Cardiology Department. We will monitor. 4. Diabetes. Hemoglobin A1c is 6.9. Apparently, he was on metformin some time ago, but he stopped the treatment. Likely, he will need to go back to metformin once he is discharged. 5. Dyslipidemia. His cholesterol is elevated, as well as the LDH for diabetic a patient. I have placed this patient back on his home medication, Lipitor 20 mg by mouth daily at bedtime. The patient told me that he was not taking this medication at home. 6. Hypertension. Continue with the same management. Blood pressure seems to be in the 130s. He used to be on amlodipine, but he has been switched to metoprolol and losartan. cc: Kenrick Burciaga MD
[2018-06-22] MEDS: VANCOMYCIN 1,600 MG in NS 250 ML IV SCH (17:30)
[2018-06-22 18:22] LABS: HEMATOCRIT 43.6 % (42.0-52.0); HEMOGLOBIN 14.8 g/dL (14.0-18.0); MCH 28.7 PG (27-31); MCHC 33.9 g/dL (33-37); MCV 84.5 FL (81-99); MPV 10.6 FL (7.4-10.4); RBC 5.16 XMIL (4.7-6.1); RDW 13.5 % (11.5-14.5)
[2018-06-22 18:32] LABS: INR 1.1; PROTIME 15.1 Seconds (11.0-16.0)
[2018-06-22 18:52] LABS: PTT HEPARIN PROTOCOL 29.9 Seconds
[2018-06-22] MEDS ORDERED: HEPARIN 25,000 UNITS/D5W 25,000 UNIT/250 ML IV.SOLN IV SCH (21:00)
[2018-06-22] MEDS ORDERED: HEPARIN 25,000 UNIT in NS 250 ML IV SCH (21:00)
[2018-06-22] MEDS: TOPROL XL PO SCH (22:00)
[2018-06-23 03:09] LABS: HEMATOCRIT 44.1 % (42.0-52.0); HEMOGLOBIN 14.9 g/dL (14.0-18.0); MCH 28.3 PG (27-31); MCHC 33.8 g/dL (33-37); MCV 83.8 FL (81-99); MPV 10.4 FL (7.4-10.4); RBC 5.26 XMIL (4.7-6.1); RDW 13.5 % (11.5-14.5); WBC 5.92 X1000 (4.8-10.8)
[2018-06-23 03:49] LABS: AGAP 12; BUN 12 mg/dL (8-22); CHLORIDE 103 mmol/L (98-107); COSMO 279; GLUCOSE 131 mg/dL (70-104); POTASSIUM 3.5 mmol/L (3.5-5.1); SODIUM 139 mmol/L (136-145); TCO2 24 mmol/L (25-35)
[2018-06-23] MEDS ORDERED: HEPARIN IV ONE ×2 (04:38→12:34)
[2018-06-23] MEDS ORDERED: HEPARIN 25,000 UNIT in NS 250 ML IV SCH ×2 (04:45→12:45)
[2018-06-23] MEDS ORDERED: LEXISCAN ONE (09:27)
[2018-06-23] MEDS: HEPARIN 25,000 UNIT in NS 250 ML IV SCH (12:52)
--- NOTE | 2018-06-23 14:03 | PROGRESS NOTE ---
DATE: 06/23/2018 SUBJECTIVE: Presented with stroke-like symptoms. He is followed by [facility]. A 72-year- old with previous CVA that left him with left-sided hemiparesis mainly in his leg. His left arm is improved. He has a history of thoracic and abdominal aortic aneurysm status post repair. His walked in the kitchen and found him on the ground minimally responsive with slurred speech, and very difficult to arouse. 911 was called and somewhat encephalopathic. Recalls being in the kitchen and making breakfast. The next thing you know he was in the ambulance. PAST MEDICAL HISTORY: 1. Previous CVA left-sided hemiparesis. 2. History of thoracic abdominal AAA repair. 3. Hypertension. 4. Hyperlipidemia. PAST SURGICAL HISTORY: Aortic aneurysm x2. He reports he feels better. His left arm is doing better. No chest pain. OBJECTIVE: He remains afebrile. Temperature 97.8 degrees, pulse 80, respirations 20, blood pressure 133/92.HEENT: Pupils are equal and round. Lungs: Clear in all lung [place]. Cardiovascular: Regular rhythm and rate without murmur or S3. Abdomen: Soft. Skin: Warm and dry. Urine output 1300 mL. Blood sugar 115, 116, and 132. ASSESSMENT AND PLAN: 1. Acute versus subacute lacunar infarct in the right thalamus. He has had extensive chronic ischemic intravascular white matter disease. He has had a previous stroke with left leg weakness. Left arm is doing better. Speech and swallow are doing better. 2. Extensive wall motion abnormality involving the anterior apical distal inferior and distal septal wall of the left ventricle suggesting extensive anterior apical myocardial infarction so Cardiology has been following. 3. Intracardiac apical thrombus measuring 2.2 x 1.3 cm. The patient is on anticoagulant followed by Cardiology. 4. Diabetes mellitus type 2. Sugars under good control. 5. Dyslipidemia. 6. Hypertension. Continue present medications. 7. Aspirin 81 mg a day. 8. Lipitor 20 mg a day. 9. Cozaar 50 mg a day. 10. Metoprolol 25 mg b.i.d. 11. Vancomycin 1600 mg IV q. 24 hours. 12. Heparin drip. cc: Lázaro Alcazar MD
[2018-06-23] MEDS: LIPITOR PO SCH (14:43)
[2018-06-23] MEDS: ASPIRIN PO SCH (14:43)
[2018-06-23] MEDS: COZAAR PO SCH (14:44)
[2018-06-23] MEDS: TOPROL XL PO SCH ×3 (14:44→22:09)
--- NOTE | 2018-06-23 15:57 | CARDIOLOGY PROGRESS NOTE ---
DATE: 06/23/2018 PROBLEM LIST: 1. Cerebrovascular accident. 2. Severe left ventricular dysfunction, with left ventricular apical clot. 3. Peripheral vascular disease. 4. Aneurysm of the descending aorta, status post stent placement. The patient does not complain of any chest pain or shortness of breath. There are no palpitations or syncope. OBJECTIVE: Vital Signs: On examination, blood pressure was 133/92. Cardiovascular System: Normal jugular venous pressure. There is no thyromegaly. No carotid bruit. First and second heart sounds were heard. There was no S3 gallop. Respiratory System: Normal air entry. There is no crepitations or rhonchi. Abdomen: Soft, nontender. There was no guarding or rigidity. Bowel sounds were heard. Central nervous system: Alert and oriented, was moving all 4 extremities. Detailed central nervous system examination not performed. CURRENT MEDICATIONS: 1. Aspirin 81 mg a day. 2. Atorvastatin 20. 3. Heparin drip per standard protocol. 4. Losartan 50. 5. Toprol-XL 25 mg p.o. b.i.d. PLAN: 1. From a cardiac standpoint, he is going to have a 24 hour thallium viability scan done; stress as well. He will finish the 24 hour scan tomorrow. 2. Depending on the extent of viability, we will plan for medical management or left heart catheterization. If he has minimal viability, we will plan for medical treatment. 3. If he is going to be managed medically depending again on the viability scan and there is only very little viability, we will stop his heparin, put him on Eliquis 5 mg to be taken twice daily given the fact that he has a left ventricular thrombus. 4. Cardiomyopathy. He has severe left ventricular dysfunction. Again, this could be secondary to coronary artery disease, and/or associated takotsubo type picture. We will have a clearer, better picture after the viability scan has been done and evaluated. In the interim, given the left ventricular dysfunction, continue with losartan 50 and Toprol-XL as planned. I have had a detailed discussion with the patient and have also discussed with him should he have significant changes, we will plan for left heart catheterization if required. He is agreeable. cc: Nahun Agee MD
[2018-06-23] MEDS: VANCOMYCIN 1,600 MG in NS 250 ML IV SCH (16:33)
[2018-06-24] MEDS: HEPARIN 25,000 UNIT in NS 250 ML IV SCH (00:54)
[2018-06-24 06:28] LABS: HEMATOCRIT 44.3 % (42.0-52.0); HEMOGLOBIN 15.1 g/dL (14.0-18.0); MCH 29.2 PG (27-31); MCHC 34.1 g/dL (33-37); MCV 85.7 FL (81-99); MPV 10.8 FL (7.4-10.4); RBC 5.17 XMIL (4.7-6.1); RDW 14.1 % (11.5-14.5); WBC 5.52 X1000 (4.8-10.8)
[2018-06-24] MEDS ORDERED: HEPARIN 25,000 UNIT in NS 250 ML IV SCH (07:15)
[2018-06-24] MEDS: COZAAR PO SCH (09:08)
[2018-06-24] MEDS: TOPROL XL PO SCH ×2 (09:08→20:53)
[2018-06-24] MEDS: ASPIRIN PO SCH (09:08)
[2018-06-24] MEDS: LIPITOR PO SCH (09:08)
--- NOTE | 2018-06-24 16:45 | PROGRESS NOTE ---
DATE: 06/24/2018 SUBJECTIVE: Mr. Cohen is feeling better. He wants to try and go home. LABORATORY: Review of his most recent lab today, white count 5,520, hematocrit 44, platelet count 134,000. Chemistries from yesterday, sodium 139, potassium 3.5, chloride 103, BUN 12, creatinine 1.0. ASSESSMENT AND PLAN: 1. They finished up his Myoview myocardial test. I think they did a 24 hour thallium viability scan and found that he had just fixed defect, so they are not planning a heart catheterization. So, from their standpoint, he can probably go home tomorrow. 2. Severe left ventricular function, left ventricular apical clot. Aware. 3. Peripheral vascular disease. 4. Aneurysm of the descending aorta, status post stent placement. Continue to manage him medically. We are going to put him back on his Eliquis. 5. He had a subacute lacunar infarct in the right thalamus. Left arm seems to be doing a little bit better. He had a previous stroke with left-sided paresis, left leg paresis which has no changed. 6. Diabetes mellitus type 2. Continue to watch pattern sugars. 7. Dyslipidemia. 8. Hypertension. 9. So, he would like to go home and do outpatient physical therapy so will see if we can make arrangements to do that tomorrow. I reviewed his medication. He is back on his Eliquis 5 mg b.i.d., aspirin 81 mg a day, Lipitor 20 mg a day, Cozaar 50 mg a day, metoprolol 25 mg b.i.d., vancomycin 1600 mg q.24 hours. We have, I believe, stopped his heparin. cc: Lázaro Alcazar MD
[2018-06-24] MEDS: ELIQUIS PO SCH ×2 (18:30→20:53)
[2018-06-24] MEDS: VANCOMYCIN 1,600 MG in NS 250 ML IV SCH (18:31)
[2018-06-25 06:45] LABS: HEMATOCRIT 43.2 % (42.0-52.0); HEMOGLOBIN 14.6 g/dL (14.0-18.0); MCH 28.7 PG (27-31); MCHC 33.8 g/dL (33-37); RBC 5.08 XMIL (4.7-6.1); WBC 5.25 X1000 (4.8-10.8)
[2018-06-25] MEDS: LIPITOR PO SCH (08:45)
[2018-06-25] MEDS: COZAAR PO SCH (08:45)
[2018-06-25] MEDS: ELIQUIS PO SCH (08:45)
[2018-06-25] MEDS: TOPROL XL PO SCH (08:46)
[2018-06-25] MEDS: ASPIRIN PO SCH (08:46)
--- NOTE | 2018-06-25 10:50 | Diag Imaging Result Document ---
PROCEDURE NAME: MYOCARDIAL PERF SCAN, STR/REST - 06/23/2018 STUDY IN DETAIL: Lexiscan was performed per standard protocol. There was no chest pain. Baseline electrocardiogram revealed normal sinus rhythm, inferior myocardial infarction, anterior myocardial infarction. Lexiscan was infused. There was no chest pain. Stress electrocardiogram was nondiagnostic. Then, 4.1 mCi of thallium was injected. Following the stress test, scans were performed at 15 minutes, 4 hours, and 24 hours to check for stress-related ischemia and viability scan. Images revealed there is no viability or ischemia. There is a severe grade, large-sized, fixed defect in the anterior wall, severe grade, large-sized, fixed defect in the inferior wall, severe grade large-sized fixed defect in the left ventricular apex diagnostic of infarct or scar. There is no viability. CONCLUSIONS: 1. No chest pain. 2. Negative Lexiscan stress electrocardiogram. 3. Thallium viability scan revealed no evidence of ischemia, and there is no viable myocardium noted. 4. There is large size scar in the anterior wall, left ventricular apex, and large size scar in the inferior wall diagnostic of infarct. cc: Nahun Agee MD
[2018-06-25 12:55] VITALS: BP 112/63
--- NOTE | 2018-06-25 15:11 | DISCHARGE SUMMARY ---
ADMISSION DATE: 06/20/2018 DISCHARGE DATE: 06/25/2018 HOSPITAL COURSE: This is a patient of MILY Correa. He presented on 06/20/2018 with stroke-like symptoms. 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 He also has a history of both thoracic and abdominal aortic aneurysm status post repair. This patient states that she walked in the kitchen and found Mr. Cohen on the ground. He had minimal responsiveness and slurring speech. He was difficult to arouse and get up. 911 was called. Patient brought here by paramedics. He appeared encephalopathic. He recalls being in the kitchen making breakfast and, the next thing he knew, he was in the ambulance on the way to the emergency room. He denies any chest pain. No shortness of breath. Denies any abdominal pain, nausea, vomiting, lower extremity edema. He does have chronic left-sided weakness, and he states possibly a little worse than it normally is. His speech was somewhat garbled, unable to answer most orientation questions correctly. CT scan was done and it did not show anything acute. Only chronic changes noted. Chest x-ray: Mild central vascular distention in the thoracic aortic graft, but nothing acute. EKG shows sinus rhythm, right bundle branch block, left axis deviation, once again reviewed. PAST MEDICAL HISTORY: 1. Previous CVA and left-sided hemiparesis. 2. History of thoracic and abdominal AAA aneurysm. 3. Hypertension. 4. Hyperlipidemia. PAST SURGICAL HISTORY: Aortic aneurysm repair x2. ADMISSION DIAGNOSES: Stroke-like symptoms. Concern for right-sided stroke. CT without contrast did not show anything. MRI was done. MRI and MRA of the neck and of the brain revealed no evidence of significant carotid disease, acute or subacute lacunar infarction in the right thalamus which corresponds to his deficit. His left arm weakness showed steady improvement. His speech improved. He had carotid Doppler done. Slow velocities throughout the entirety of the bilateral carotid arteries, which may limit the interpretive ability of the study by strict criteria. No hemodynamically significant flow-limiting stenosis. The patient had a myocardial perfusion scan per Dr. Agee. He has no chest pain during the scan, negative Lexiscan. EKG and the viability study showed no evidence of new ischemia. There revealed no large size scar in the anterior wall, left ventricular apex. Large size scar in the inferior wall. So, felt patient did not need a heart catheterization. He wanted to go home and get physical therapy at home. Blood sugars were well maintained. DISCHARGE MEDICATIONS: 1. Eliquis 5 mg b.i.d. 2. Aspirin 81 mg a day. 3. Lipitor 20 mg a day. 4. Cozaar 50 mg daily. 5. Toprol-XL 25 mg b.i.d. cc: Lázaro Alcazar MD
== END 2018-06-25 16:22 | disposition home or self-care (01) | DRG 65 ==
LOC: ED 14:19 → 3N 18:06 → SUATTDRO 18:06
PROVIDERS: ATTEND Emergency Medicine
CPT/HCPCS: 70450; 70544; 70548; 70551; 71010; 71045; 78452; 80048; 80053; 80061; 80202; 81001; 82550; 82948; 83036; 83721; 83735; 84439; 84443; 84484; 85025; 85027; 85610; 85730; 87040; 87077; 87186; 92523; 93005; 93017; 93306; 93880; 94761; 96360; 96361; 97110; 97116; 97161; 97530; 99285; A9270; A9505; A9579; C8929; J1644; J2785; J3370; J7030; J7040; J7050; Q9957; XXXXX